=== PATIENT | female | born 1935 ===

== ENCOUNTER 2016-07-02 10:30 | Emergency (ER) | payer MEDICARE, MEDICAID ==
[2016-07-02 10:35] VITALS: BP 148/87; PULSE 80; RESP 20; TEMP 98.7; O2SAT 100; BMI 21.1
--- NOTE | 2016-07-02 11:14 | ED PDOC ---
HPI: General Adult Time Seen by Provider: 07/02/16 10:50 Chief Complaint (Nursing): ENT Problem Chief Complaint (Provider): fall, facial trauma, knee pain History Per: Patient, Family (Son at bedside is translating for patient in Czech) Additional Complaint(s): 80-year-old female presents to emergency department for evaluation status post fall at home this morning. Patient injured her nose and right knee. She states that she accidentally tripped on something on the floor at home. Patient denies dizziness or syncope prior to fall. She did not sustain loss of consciousness. Patient injured right side of nose and has epistaxis from right nares. She has been able to ambulate since time of injury. Abrasion noted to right knee, patient states tetanus is up to date. Past Medical History Reviewed: Historical Data, Nursing Documentation, Vital Signs Vital Signs: Last Vital Signs Temp 98.7 F 07/02/16 10:34 Pulse 80 07/02/16 10:34 Resp 20 07/02/16 10:34 BP 148/87 07/02/16 10:34 Pulse Ox 100 07/02/16 13:39 - Medical History PMH: HTN, Hypothyroidism, Osteoporosis - Surgical History Surgical History: Cholecystectomy Other surgeries: bladder lift - Family History Family History: States: No Known Family Hx - Living Arrangements Living Arrangements: With Family - Social History Current smoker - smoking cessation education provided: No Alcohol: None Drugs: Denies - Immunization History Hx Tetanus Toxoid Vaccination: Yes - Home Medications Home Medications: Ambulatory Orders Medication Instructions Recorded Levothyroxine Sodium [Unithroid] 1 tab PO DAILY 09/11/14 Losartan Potassium [Losartan 1 tab PO DAILY 09/11/14 Potassium] Ranitidine Hydrochloride 1 tab PO BID 09/11/14 [Ranitidine] - Allergies Allergies/Adverse Reactions: Allergies Allergy/AdvReac Type Severity Reaction Status Date / Time codeine Allergy RASH Verified 07/02/16 10:46 Penicillins Allergy RASH Verified 07/02/16 10:46 Review of Systems ROS Statement: Except As Marked, All Systems Reviewed And Found Negative Eyes: Negative for: Vision Change ENT: Positive for: Other (nose/facial injury) Gastrointestinal: Negative for: Nausea, Vomiting Musculoskeletal: Positive for: Other (right knee pain s/p fall) Neurological: Positive for: Other (head injury s/p fall, no LOC). Negative for : Change in Speech, Seizures, Altered Mental Status Physical Exam - Reviewed Nursing Documentation Reviewed: Yes Vital Signs Reviewed: Yes - Physical Exam Appears: Positive for: Well, Non-toxic, No Acute Distress Head Exam: Positive for: ATRAUMATIC, NORMAL INSPECTION Skin: Negative for: Rash Eye Exam: Positive for: Normal appearance, EOMI, PERRL, Periorbital tenderness ( bilaterally with no palpable bony deformity). Negative for: Periorbital swelling ENT: Positive for: Other (Swelling and tenderness noted to right proximal nasal bridge, slight active bleeding noted from right nares, nares are patent bilaterally, no septal hematoma, mild tenderness to right maxillary region with no palpable bony deformity) Neck: Positive for: Painless ROM. Negative for: Pain On Movement Of Neck Cardiovascular/Chest: Positive for: Regular Rate, Rhythm Respiratory: Positive for: Normal Breath Sounds. Negative for: Respiratory Distress Back: Negative for: L CVA Tenderness, R CVA Tenderness, Vertebral Tenderness Extremity: Positive for: Other (abrasion and mild swelling to right patellar region with full rom, normal distal sensation right lower extremity) Neurologic/Psych: Positive for: Alert, Oriented - ECG O2 Sat by Pulse Oximetry: 100 Pulse Ox Interpretation: Normal - Other Rad CT head and facial bones X-Ray: Read By Radiologist X-Ray Interpretation: no acute intracranial finding, no facial bones fracture, NAP Right knee x-ray X-Ray: Interpreted by Me, Viewed By Me X-Ray Interpretation: no fx, no dis, arthritic changes noted Medical Decision Making Medical Decision Makin80 year old with facial pain and right knee pain s/p trip and fall Plan: CT head and facial bones X-ray right knee PO tylenol - dose ordered but patient refused. Patient and family members at bedside are aware of all diagnostic testing results, all questions answered. Advised ice to affected area and tylenol prn pain. Ortho and ENT referral provided. Crutches declined, see procedure note. Procedures - Splinting Location: right knee Pre-Made Type: knee immobilizer Pre-Proc Neuro Vasc Exam: normal Post-Proc Neuro Vasc Exam: normal Disposition - Clinical Impression Clinical Impression: Knee abrasion, Knee sprain, Contusion, nose, Head injury, Accidental fall - Patient ED Disposition Is Patient to be Admitted: No Counseled Patient/Family Regarding: Studies Performed, Diagnosis, Need For Followup - Disposition Referrals: William Philippe MD [Staff Provider] - Belinda Singleton MD [Staff Provider] - Disposition: Routine/Home Disposition Time: 13:37 Condition: STABLE Additional Instructions: Ice and rest affected areas. Tylenol as needed for pain. Follow up with ear, nose and throat specialist and orthopedist in 2-3 days. Instructions: Knee Sprain (ED), Head Injury (ED), Abrasion (ED), Facial Contusion (ED) Print Language: IRISH
--- NOTE | 2016-07-02 12:53 | CT ---
PROCEDURE: CT HEAD WITHOUT CONTRAST. HISTORY: trauma COMPARISON: None available. TECHNIQUE: Axial computed tomography images were obtained through the head/brain without intravenous contrast. Radiation dose: Total exam DLP = 838 mGy-cm. This CT exam was performed using one or more of the following dose reduction techniques: Automated exposure control, adjustment of the mA and/or kV according to patient size, and/or use of iterative reconstruction technique. FINDINGS: HEMORRHAGE: No intracranial hemorrhage. BRAIN: No mass effect or edema. Mild chronic microvascular ischemic changes. VENTRICLES: Unremarkable. No hydrocephalus. CALVARIUM: Unremarkable. PARANASAL SINUSES: Unremarkable as visualized. No significant inflammatory changes. MASTOID AIR CELLS: Unremarkable as visualized. No inflammatory changes. OTHER FINDINGS: None. IMPRESSION: No acute hemorrhage.
--- NOTE | 2016-07-02 13:11 | CT ---
PROCEDURE: CT MAXILLOFACIAL BONES WITHOUT CONTRAST HISTORY: trauma COMPARISON: None TECHNIQUE: Contiguous axial CT images of the maxillofacial bones were obtained. Coronal and sagittal reformats were generated. Radiation dose: Total exam DLP = 804 mGy-cm. This CT exam was performed using one or more of the following dose reduction techniques: Automated exposure control, adjustment of the mA and/or kV according to patient size, and/or use of iterative reconstruction technique. FINDINGS: NASAL BONES: Unremarkable. ORBITS: Unremarkable. PARANASAL SINUSES/ MASTOIDS: Clear. MAXILLA: Unremarkable. MANDIBLE/ TEMPOROMANDIBULAR JOINTS: Unremarkable. SKULL BASE: Unremarkable. TEMPORAL BONES: Middle ears and mastoid grossly unremarkable. OTHER FINDINGS: None. IMPRESSION: Unremarkable non contrast enhanced CT of the maxillofacial bones.
--- NOTE | 2016-07-02 16:00 | RAD ---
PROCEDURE: Right Knee Radiographs. HISTORY: trauma COMPARISON: None. FINDINGS: BONES: Normal. No fracture. JOINTS: Normal. No osteoarthritis. JOINT EFFUSION: None. OTHER FINDINGS: None. IMPRESSION: Normal radiographs of the right knee.
== END 2016-07-02 14:33 | disposition home or self-care (01) ==
LOC: H.ER 10:30
DX: S09.90XA Unspecified injury of head, initial encounter (principal); S00.83XA Contusion of other part of head, initial encounter; S83.91XA Sprain of unspecified site of right knee, initial encounter; W19.XXXA Unspecified fall, initial encounter; Y92.008 Other place in unspecified non-institutional (private) residence as the place of occurrence of the external cause; I10 Essential (primary) hypertension; E03.9 Hypothyroidism, unspecified; Z88.0 Allergy status to penicillin

== ENCOUNTER 2017-07-22 17:29 | Emergency (ER) | payer MEDICARE, MEDICAID ==
[2017-07-22 17:41] VITALS: BMI 23.4
[2017-07-22 18:11] VITALS: TEMP 99.1
[2017-07-22] MEDS ORDERED: Sodium Chloride 0.9% 1,000 ML IV SCH (18:30)
--- NOTE | 2017-07-22 18:44 | ED PDOC ---
HPI: Abdomen Chief Complaint (Nursing): Headache Chief Complaint (Provider): Abdominal pain and mild headache History Per: Patient History/Exam Limitations: no limitations Onset/Duration Of Symptoms: Days (2x) Quality Of Discomfort: "Pain" Associated Symptoms: Loss Of Appetite. denies: Fever, Nausea, Vomiting, Chest Pain, Constipation, Urinary Symptoms Additional Complaint(s): 81 year old female present to the ED complaining of gas, mild headache, and abdominal pain onset for 2 ago. Also reports of decreased appetite. Denies vomiting, nausea, bloody stool, dysuria, fever, or chest pain. PMD: Reese Gonzalez Past Medical History Reviewed: Historical Data, Nursing Documentation, Vital Signs Vital Signs: Last Vital Signs Temp 99.1 F 07/22/17 18:09 Pulse 68 07/22/17 20:37 Resp 12 07/22/17 20:37 BP 132/74 07/22/17 20:37 Pulse Ox 96 07/22/17 23:39 - Medical History PMH: HTN, Hypothyroidism, Osteoporosis - Surgical History Surgical History: Cholecystectomy - Family History Family History: States: Unknown Family Hx - Immunization History Hx Tetanus Toxoid Vaccination: Yes - Home Medications Home Medications: Ambulatory Orders Medication Instructions Recorded Levothyroxine Sodium [Unithroid] 1 tab PO DAILY 09/11/14 Losartan Potassium [Losartan 1 tab PO DAILY 09/11/14 Potassium] Ranitidine Hydrochloride 1 tab PO BID 09/11/14 [Ranitidine] Nitrofurantoin Macrocrystals 100 mg PO BID 5 Days cap 07/22/17 [Macrobid] Simethicone [Gas Relief] 80 mg PO BID #12 tab.chew 07/22/17 - Allergies Allergies/Adverse Reactions: Allergies Allergy/AdvReac Type Severity Reaction Status Date / Time codeine Allergy RASH Verified 07/22/17 18:08 Penicillins Allergy RASH Verified 07/22/17 18:08 Review of Systems ROS Statement: Except As Marked, All Systems Reviewed And Found Negative Constitutional: Negative for: Fever Cardiovascular: Negative for: Chest Pain Gastrointestinal: Positive for: Abdominal Pain. Negative for: Nausea, Vomiting , Constipation Genitourinary Female: Negative for: Dysuria Neurological: Positive for: Headache (mild ) Physical Exam - Reviewed Nursing Documentation Reviewed: Yes Vital Signs Reviewed: Yes - Physical Exam Appears: Positive for: Well, Non-toxic, No Acute Distress Head Exam: Positive for: ATRAUMATIC, NORMAL INSPECTION, NORMOCEPHALIC Skin: Positive for: Normal Color, Warm, Dry Eye Exam: Positive for: Normal appearance ENT: Positive for: Normal ENT Inspection Neck: Positive for: Normal, Painless ROM, Supple. Negative for: Decreased ROM Cardiovascular/Chest: Positive for: Regular Rate, Rhythm. Negative for: Murmur Respiratory: Positive for: Normal Breath Sounds. Negative for: Decreased Breath Sounds, Accessory Muscle Use, Respiratory Distress Gastrointestinal/Abdominal: Positive for: Bowel Sounds, Soft, Tenderness (left- side) Back: Positive for: Normal Inspection. Negative for: L CVA Tenderness, R CVA Tenderness Extremity: Positive for: Normal ROM. Negative for: Tenderness, Pedal Edema, Deformity Neurologic/Psych: Positive for: Alert, Oriented (x3). Negative for: Motor/ Sensory Deficits - Laboratory Results Result Diagrams: 07/22/17 18:49 07/22/17 18:49 - ECG O2 Sat by Pulse Oximetry: 96 (RA) Pulse Ox Interpretation: Normal Medical Decision Making Medical Decision Making: Time: 1825 Initial Plan: --ABD & Pelvis IV Contrast CT --CMP --Lipase --CBC w/ Differential --Normal Saline 125mls/hr --Toradol 30mg --Urinalysis --Reevaluation Scribe Attestation: Documented by Yanick Green, acting as a scribe for Scotty Delaney Do Provider Scribe Attestation: All medical record entries made by the Scribe were at my direction and personally dictated by me. I have reviewed the chart and agree that the record accurately reflects my personal performance of the history, physical exam, medical decision making, and the department course for this patient. I have also personally directed, reviewed, and agree with the discharge instructions and disposition. Disposition - Clinical Impression Clinical Impression: UTI (urinary tract infection), Bloating - Disposition Referrals: [facility] [Outside] Reese Gonzalez [facility] [Advanced Practice Nurse] - Disposition Time: 19:00 Condition: IMPROVED Prescriptions: Nitrofurantoin Macrocrystals [Macrobid] 100 mg PO BID 5 Days cap Simethicone [Gas Relief] 80 mg PO BID #12 tab.chew Instructions: Urinary Tract Infections in Adults, Gas and Bloating Forms: [employer] ([employer]) (Cape Verdean) Print Language: CYPRIOT
[2017-07-22 18:54] LABS: BASO % 0.3 % (0.0-2.0); HEMOGLOBIN 13.2 g/dL (12.0-16.0); LYMPH # 1.6 K/uL (1.0-4.3); LYMPH % 27.2 % (20.0-40.0); MEAN CORPUSCULAR HEMOGLOBIN 29.2 pg (27.0-31.0); MEAN PLATELET VOLUME 10.1 fl (7.2-11.7); MONO # 0.6 K/uL (0.0-0.8); MONO % 9.8 % (0.0-10.0); NEUT # 3.8 K/uL (1.8-7.0); NEUT % 62.7 % (50.0-75.0); RBC 4.5 Mil/uL (3.80-5.20); RED CELL DISTRIBUTION WIDTH 14.1 % (11.5-14.5); WHITE BLOOD COUNT 6.1 K/uL (4.8-10.8)
[2017-07-22 19:03] LABS: ALB/GLOB RATIO 1.2 (1.0-2.1); ALT/SGPT 26 U/L (9-52); AST/SGOT 36 U/L (14-36); BLOOD UREA NITROGEN 21 mg/dl (7-17); CALCIUM 9.1 mg/dL (8.4-10.2); GFR AFRICAN-AMERICAN > 60; GFR NON-AFRICAN AMERICAN > 60; LIPASE 69 U/L (23-300)
--- NOTE | 2017-07-22 19:11 | ED PDOC ---
- Laboratory Results Result Diagrams: 07/22/17 18:49 07/22/17 18:49 - ECG O2 Sat by Pulse Oximetry: 96 (RA) Pulse Ox Interpretation: Normal Medical Decision Making Medical Decision Making: Time: 1899 Patient signed out to me by Dr. Delaney pending reevaluation. Time: 2110 ABD PELVIS IV CONTRAST ONLY Exam Date: 07/22/17 This imaging exam was performed at [facility] EXAM: CT Abdomen and Pelvis With Intravenous Contrast EXAM DATE/TIME: 07/22/2017 6:26 PM CLINICAL HISTORY: 81 years old, female; Pain; Abdominal pain; Generalized; Prior surgery; Surgery date: 6+ months; Surgery type: Cholecystectomy; Patient HX: Loss of appetite; Additional info: Left-sided abdominal pain TECHNIQUE: Axial computed tomography images of the abdomen and pelvis with intravenous contrast. All CT scans at this facility use one or more dose reduction techniques, viz.: automated exposure control; ma/kV adjustment per patient size (including targeted exams where dose is matched to indication; i.e. head); or iterative reconstruction technique. Coronal and sagittal reformatted images were created and reviewed. CONTRAST: 95 mL of OMNIPAQUE 300 administered intravenously. COMPARISON: No relevant prior studies available. FINDINGS: LUNG BASES: No significant abnormality seen. HEART: Heart appears mildly enlarged. ABDOMEN: LIVER: Mild fatty infiltration of the liver. GALLBLADDER AND BILE DUCTS: Cholecystectomy clips. Mild biliary ductal dilatation, most likely related to the post cholecystectomy state. No radiopaque common bile duct stones are visualized. Recommend correlation with LFTs as clinically indicated. PANCREAS: The pancreatic duct is seen, however, it does not appear abnormally dilated. No CT evidence of acute pancreatitis. SPLEEN: No acute abnormality of the spleen identified. ADRENALS: No acute abnormality of the adrenal glands identified. KIDNEYS AND URETERS: Low density lesion in the right kidney, most likely a cyst. This measures 1 cm. No acute abnormality of the kidneys identified. STOMACH AND BOWEL: Extensive sigmoid diverticulosis, without evidence of acute diverticulitis. Otherwise, no significant abnormality of the bowel is identified. No evidence of bowel obstruction. PELVIS: APPENDIX: Appendix is seen, and is within normal limits in appearance. BLADDER: No acute abnormality of the bladder identified. REPRODUCTIVE: Best seen on image 63 of series 601, there is a small 2 x 1 cm ovoid cystic right adnexal lesion. This has a CT attenuation mildly higher that expected for a simple cyst. It is most likely a mildly complex cyst. There are multiple prominent periuterine and bilateral adnexal vessels, of uncertain clinical significance. No acute abnormality of the uterus identified. No evidence of left adnexal masses. ABDOMEN and PELVIS: INTRAPERITONEAL SPACE: No evidence of free intraperitoneal air or fluid. BONES/JOINTS: No acute fractures or other acute bony abnormality noted. SOFT TISSUES: No acute abnormality of the visualized soft tissues is seen. VASCULATURE: See above. No evidence of abdominal aortic aneurysm or dissection. LYMPH NODES: No evidence of diffuse lymphadenopathy. IMPRESSION: - No evidence of significant acute process. - Biliary ductal dilatation, most likely related to the postcholecystectomy state. - Incidental small 2 x 1 cm cystic lesion in the right adnexa, which is likely mildly complex. Pelvic ultrasound is recommended for further evaluation, unless otherwise clinically indicated, on a nonemergent basis. - See above for remaining findings. Patient is feeling better, tolerates PO, vitals are stable. Clinical Impression: UTI, bloating Upon provider evaluation patient is medically stable, and requires no further treatment in the ED at this time. Patient is well appearing with normal vitals, ambulatory, and reports feeling better. Patient will be discharged. Counseling was provided and all questions were answered regarding diagnosis and need for follow up with PMD. There is agreement to discharge plan. Return if symptoms persist or worsen. Scribe Attestation: Documented by Yanick Green, acting as a scribe for Yobani Rojas MD Provider Scribe Attestation: All medical record entries made by the Scribe were at my direction and personally dictated by me. I have reviewed the chart and agree that the record accurately reflects my personal performance of the history, physical exam, medical decision making, and the department course for this patient. I have also personally directed, reviewed, and agree with the discharge instructions and disposition. Disposition - Clinical Impression Clinical Impression: UTI (urinary tract infection), Bloating - POA Present On Arrival: None - Disposition Referrals: [facility] [Outside] Reese Gonzalez [facility] [Advanced Practice Nurse] - Disposition: Routine/Home Disposition Time: 21:10 Condition: IMPROVED Prescriptions: Nitrofurantoin Macrocrystals [Macrobid] 100 mg PO BID 5 Days cap Simethicone [Gas Relief] 80 mg PO BID #12 tab.chew Instructions: Urinary Tract Infections in Adults, Gas and Bloating Forms: [employer] (Welsh) Print Language: SAMI
[2017-07-22] MEDS ORDERED: Sodium Chloride 0.9% 100 ML ONE (19:19)
[2017-07-22] MEDS ORDERED: Iohexol 300 100 ML IJ ONE (19:19)
[2017-07-22 20:37] VITALS: BP 132/74; PULSE 68; RESP 12
[2017-07-22 20:56] LABS: SQUAMOUS EPITHIAL < 1 /hpf (0-5); URINE BACTERIA RARE (<OCC); URINE BILIRUBIN NEGATIVE (NEGATIVE); URINE BLOOD NEGATIVE (NEGATIVE); URINE CLARITY CLEAR (Clear); URINE COLOR YELLOW (YELLOW); URINE GLUCOSE (UA) NEG (Normal); URINE LEUKOCYTE ESTERASE SMALL Leu/uL (Negative); URINE PROTEIN NEGATIVE (NEGATIVE); URINE UROBILINOGEN 0.2-1.0 mg/dL (0.2-1.0)
--- NOTE | 2017-07-22 21:12 | CT ---
EXAM: CT Abdomen and Pelvis With Intravenous Contrast EXAM DATE/TIME: 07/22/2017 6:26 PM CLINICAL HISTORY: 81 years old, female; Pain; Abdominal pain; Generalized; Prior surgery; Surgery date: 6+ months; Surgery type: Cholecystectomy; Patient HX: Loss of appetite; Additional info: Left-sided abdominal pain TECHNIQUE: Axial computed tomography images of the abdomen and pelvis with intravenous contrast. All CT scans at this facility use one or more dose reduction techniques, viz.: automated exposure control; ma/kV adjustment per patient size (including targeted exams where dose is matched to indication; i.e. head); or iterative reconstruction technique. Coronal and sagittal reformatted images were created and reviewed. CONTRAST: 95 mL of OMNIPAQUE 300 administered intravenously. COMPARISON: No relevant prior studies available. FINDINGS: LUNG BASES: No significant abnormality seen. HEART: Heart appears mildly enlarged. ABDOMEN: LIVER: Mild fatty infiltration of the liver. GALLBLADDER AND BILE DUCTS: Cholecystectomy clips. Mild biliary ductal dilatation, most likely related to the post cholecystectomy state. No radiopaque common bile duct stones are visualized. Recommend correlation with LFTs as clinically indicated. PANCREAS: The pancreatic duct is seen, however, it does not appear abnormally dilated. No CT evidence of acute pancreatitis. SPLEEN: No acute abnormality of the spleen identified. ADRENALS: No acute abnormality of the adrenal glands identified. KIDNEYS AND URETERS: Low density lesion in the right kidney, most likely a cyst. This measures 1 cm. No acute abnormality of the kidneys identified. STOMACH AND BOWEL: Extensive sigmoid diverticulosis, without evidence of acute diverticulitis. Otherwise, no significant abnormality of the bowel is identified. No evidence of bowel obstruction. PELVIS: APPENDIX: Appendix is seen, and is within normal limits in appearance. BLADDER: No acute abnormality of the bladder identified. REPRODUCTIVE: Best seen on image 63 of series 601, there is a small 2 x 1 cm ovoid cystic right adnexal lesion. This has a CT attenuation mildly higher that expected for a simple cyst. It is most likely a mildly complex cyst. There are multiple prominent periuterine and bilateral adnexal vessels, of uncertain clinical significance. No acute abnormality of the uterus identified. No evidence of left adnexal masses. ABDOMEN and PELVIS: INTRAPERITONEAL SPACE: No evidence of free intraperitoneal air or fluid. BONES/JOINTS: No acute fractures or other acute bony abnormality noted. SOFT TISSUES: No acute abnormality of the visualized soft tissues is seen. VASCULATURE: See above. No evidence of abdominal aortic aneurysm or dissection. LYMPH NODES: No evidence of diffuse lymphadenopathy. IMPRESSION: - No evidence of significant acute process. - Biliary ductal dilatation, most likely related to the postcholecystectomy state. - Incidental small 2 x 1 cm cystic lesion in the right adnexa, which is likely mildly complex. Pelvic ultrasound is recommended for further evaluation, unless otherwise clinically indicated, on a nonemergent basis. - See above for remaining findings.
[2017-07-22 21:28] VITALS: O2SAT 96
--- NOTE | 2017-07-24 14:28 | CARD ---
APPROVED REPORT EKG Measurement Heart [id number] <Conclusion> Normal sinus rhythm Nonspecific ST and T wave abnormality Abnormal ECG
== END 2017-07-22 22:00 | disposition home or self-care (01) ==
LOC: H.ER 17:29
DX: N39.0 Urinary tract infection, site not specified (principal); R14.0 Abdominal distension (gaseous); I10 Essential (primary) hypertension; E03.9 Hypothyroidism, unspecified; M81.0 Age-related osteoporosis without current pathological fracture; Z88.0 Allergy status to penicillin; Z90.49 Acquired absence of other specified parts of digestive tract
CPT/HCPCS: 74177; 80053; 81003; 83690; 84484; 85025; 96374; 99285; J1885; J7030; Q9967

== ENCOUNTER 2018-02-21 23:44 | Emergency (ER) | payer MEDICARE, MEDICAID ==
[2018-02-22 03:24] VITALS: BMI 24.0
[2018-02-22] MEDS ORDERED: Albuterol-Ipratrop 3 mg / 0.5 (3 ml) UD INH STA (03:24)
--- NOTE | 2018-02-22 03:39 | ED PDOC ---
History of Present Illness History of Present Illness: 82 year old female with a history of HTN and hypothyroidism presents to the ED with flu-like symptoms for three days. Symptoms include dry cough, sore throat, headache and chest pain while coughing. She denies fever and vomiting. PMD: none provided HPI: Influenza Time Seen by Provider: 02/22/18 03:22 Chief Complaint: Cough, Cold, Congestion Chief Complaint (Provider): Cough, Cold, Congestion History Per: Patient Exam Limitations: no limitations Onset/Duration Of Symptoms: Days (x 3) Symptoms include: headache, sore throat, cough (dry), chest pain. denies: fever Risk factors for flu complications: Yes: adult > 65 years Past Medical History Reviewed: Historical Data, Nursing Documentation, Vital Signs Vital Signs: Last Vital Signs Temp 98.4 F 02/22/18 03:29 Pulse Resp BP Pulse Ox - Medical History PMH: HTN, Hypothyroidism, Osteoporosis - Surgical History Surgical History: Cholecystectomy - Family History Family History: States: Unknown Family Hx - Social History Current smoker - smoking cessation education provided: No Alcohol: None Drugs: Denies - Immunization History Hx Tetanus Toxoid Vaccination: Yes - Home Medications Home Medications: Ambulatory Orders Medication Instructions Recorded Levothyroxine Sodium [Unithroid] 1 tab PO DAILY 09/11/14 Losartan Potassium 1 tab PO DAILY 09/11/14 Ranitidine Hydrochloride 1 tab PO BID 09/11/14 [Ranitidine] Nitrofurantoin Macrocrystals 100 mg PO BID 5 Days cap 07/22/17 [Macrobid] Simethicone [Gas Relief] 80 mg PO BID #12 tab.chew 07/22/17 Azithromycin [Zithromax] 250 mg PO QAM #1 pkg 02/22/18 Benzonatate [Tessalon Perle] 100 mg PO TID PRN #15 capsule 02/22/18 - Allergies Allergies/Adverse Reactions: Allergies Allergy/AdvReac Type Severity Reaction Status Date / Time codeine Allergy RASH Verified 07/22/17 18:08 Penicillins Allergy RASH Verified 07/22/17 18:08 Review of Systems ROS Statement: Except As Marked, All Systems Reviewed And Found Negative Constitutional: Negative for: Fever, Chills ENT: Positive for: Throat Pain. Negative for: Nose Congestion Cardiovascular: Positive for: Chest Pain (brought on by cough) Respiratory: Positive for: Cough (dry). Negative for: Shortness of Breath Neurological: Positive for: Headache. Negative for: Dizziness Physical Exam - Reviewed Nursing Documentation Reviewed: Yes Vital Signs Reviewed: Yes - Physical Exam Appears: Positive for: No Acute Distress Skin: Positive for: Normal Color, Warm, Dry Eye Exam: Positive for: EOMI, Normal appearance, PERRL Neck: Positive for: Painless ROM, Supple. Negative for: Normal ((+) bilateral cervical lymphadenopathy) Cardiovascular/Chest: Positive for: Regular Rate, Rhythm, Chest Non Tender. Negative for: Murmur Respiratory: Positive for: Decreased Breath Sounds (mild decreased air entry). Negative for: Respiratory Distress Gastrointestinal/Abdominal: Positive for: Normal Exam, Soft. Negative for: Tenderness, Mass, Guarding Extremity: Positive for: Normal ROM (upper and lower extremities). Negative for: Deformity Neurologic/Psych: Positive for: Alert, Oriented (x 3). Negative for: Motor/Sensory Deficits Medical Decision Making Medical Decision Makin:24 Impression: 82 year old female with flu like symptoms Initial Plan: --Duoneb 3 ml INH --Prednisone 60 mg PO --CXR --Peak flow pre/post --Influenza AB --Rapid strep 05:28 --Flu and strep tests are negative. CXR shows no active disease. Patient is s table for discharge. Diagnoses are bronchitis and URI. Scribe Attestation: Documented by Myra Gibson acting as a scribe for Khoi Tam MD Provider Scribe Attestation: All medical record entries made by the Scribe were at my direction and personally dictated by me. I have reviewed the chart and agree that the record accurately reflects my personal performance of the history, physical exam, medical decision making, and the department course for this patient. I have also personally directed, reviewed, and agree with the discharge instructions and disposition. Disposition - Clinical Impression Clinical Impression: Bronchitis - Patient ED Disposition Is Patient to be Admitted: No - Disposition Disposition: Routine/Home Disposition Time: 05:28 Condition: STABLE Prescriptions: Azithromycin [Zithromax] 250 mg PO QAM #1 pkg Benzonatate [Tessalon Perle] 100 mg PO TID PRN #15 capsule PRN Reason: Cough Instructions: Acute Bronchitis Forms: [facility] ([place]an) Print Language: BURUNDIAN
[2018-02-22] MEDS ORDERED: Albuterol-Ipratrop 3 mg / 0.5 (3 ml) UD ONE (04:41)
[2018-02-22 05:04] VITALS: RESP 18
[2018-02-22 05:10] VITALS: BP 130/65; PULSE 90; TEMP 98.5; O2SAT 98
--- NOTE | 2018-02-22 12:30 | RAD ---
Date of service: 02/22/2018 HISTORY: cough COMPARISON: No prior. TECHNIQUE: Chest PA and lateral FINDINGS: LUNGS: No active pulmonary disease. PLEURA: No significant pleural effusion identified. No pneumothorax apparent. CARDIOVASCULAR: Atherosclerotic calcifications identified primarily aortic arch. Calcified nonaneurysmal abdominal aorta. OSSEOUS STRUCTURES: No significant abnormalities. VISUALIZED UPPER ABDOMEN: Normal. OTHER FINDINGS: None. IMPRESSION: No active disease.
== END 2018-02-22 05:40 | disposition home or self-care (01) ==
LOC: H.ER 23:44
DX: J40 Bronchitis, not specified as acute or chronic (principal); E03.9 Hypothyroidism, unspecified; I10 Essential (primary) hypertension; Z88.0 Allergy status to penicillin; M81.0 Age-related osteoporosis without current pathological fracture